=== PATIENT | female | born 1945 | race Caucasian/White ===

== ENCOUNTER → 2016-05-27 | Outpatient (CLI) | payer MEDICARE, OTHER ==
[~2016-05-27] MED LIST: ATRV10T PO; Atorvastatin Calcium PO; BISA5TAB8 PO; CHOL400T29 PO; CITA10TA PO; Citalopram Hydrobromide PO; DCS100C PO; DOCU100T7 PO; FERR-57 PO; FESO8TAB PO; FRS325T PO; HYDR-34 PO; HYDR-3720 PO; HYDR118S10 PO; Ibuprofen PO; MELO-195 PO; MULT-608 PO; Multivitamins/Minerals Therap PO; OMEG-12 PO; OMG1KC PO; ROSU10TA12 PO; TOLTA4 PO; TRAM50TA2 PO; VITA1CAP59 PO; WRF5T PO
--- NOTE | 2016-05-27 13:32 | Diagnostic Imaging Report ---
PROCEDURE: CT head without contrast. TECHNIQUE: Multiple contiguous axial images were obtained through the brain without the use of intravenous contrast. INDICATION: Dementia. FINDINGS: There is no intracranial hemorrhage, edema or mass effect. There is periventricular and deep white matter hypodensities compatible with chronic microvascular ischemic changes. There is no hydrocephalus. No extra-axial fluid collection is seen. The calvarium, the visualized portions of the paranasal sinuses and orbits appear grossly unremarkable. IMPRESSION: 1. No intracranial hemorrhage. 2. White matter findings described are likely secondary to chronic microvascular ischemic changes. Dictated by: Dictated on workstation # [id number]
== END ==
LOC: RAD 12:54
PROVIDERS: ATTEND Family Medicine
DX: F03.90 Unspecified dementia, unspecified severity, without behavioral disturbance, psychotic disturbance, mood disturbance, and anxiety (principal)
CPT/HCPCS: 70450

== ENCOUNTER → 2016-06-25 | Outpatient (CLI) | payer MEDICARE, OTHER ==
[2016-06-25 14:19] LABS: BASOPHILS # (AUTO) 0.1 10^3/uL (0.0-0.1); BASOPHILS % (AUTO) 1 % (0-10); EOSINOPHILS % (AUTO) 0 % (0-10); LYMPHOCYTES # (AUTO) 2.2 X 10^3 (1.0-4.0); LYMPHOCYTES % (AUTO) 19 % (12-44); MEAN CORPUSCULAR HEMOGLOBIN 34 PG (25-34); MEAN CORPUSCULAR HGB CONC 33 G/DL (32-36); MEAN CORPUSCULAR VOLUME 102 FL (80-99); MEAN PLATELET VOLUME 9.7 FL (7.4-10.4); MONOCYTES # (AUTO) 1.3 X 10^3 (0.0-1.0); MONOCYTES % (AUTO) 11 % (0-12); NEUTROPHILS # (AUTO) 8.1 X 10^3 (1.8-7.8); NEUTROPHILS % (AUTO) 69 % (42-75); PLATELET COUNT 220 10^3/uL (130-400); RED BLOOD COUNT 4.06 10^6/uL (4.35-5.85); RED CELL DISTRIBUTION WIDTH 19.2 % (10.0-14.5); WHITE BLOOD COUNT 11.7 10^3/uL (4.3-11.0)
[2016-06-25 14:39] LABS: ALANINE AMINOTRANSFERASE 13 U/L (0-55); ALBUMIN 4.4 G/DL (3.2-4.5); ANION GAP 12 MMOL/L (5-14); ASPARTATE AMINO TRANSFERASE 16 U/L (5-34); BILIRUBIN,TOTAL 0.7 MG/DL (0.1-1.0); BLOOD UREA NITROGEN 13 MG/DL (7-18); BUN/CREATININE RATIO 17; CALCIUM 9.6 MG/DL (8.5-10.1); CARBON DIOXIDE 25 MMOL/L (21-32); CHLORIDE 105 MMOL/L (98-107); CREATININE SERUM 0.75 MG/DL (0.60-1.30); GFR ESTIMATED > 60; GLUCOSE 136 MG/DL (70-105); POTASSIUM 3.9 MMOL/L (3.6-5.0); SODIUM 142 MMOL/L (135-145); TOTAL PROTEIN 6.9 G/DL (6.4-8.2)
== END ==
LOC: LAB 13:59
PROVIDERS: ATTEND Family Medicine
DX: R06.02 Shortness of breath (principal)
CPT/HCPCS: 36415; 80053; 83880; 85025

== ENCOUNTER 2017-02-28 22:51 | Emergency (ER) | payer MEDICARE, OTHER ==
[~2017-02-28] VITALS: Ht 157.5 cm; Wt 79.4 kg
[2017-02-28] MEDS ORDERED: TRAZ-28 (23:05)
[2017-02-28] MEDS ORDERED: OXYB5TAB9 (23:05)
[2017-02-28] MEDS ORDERED: LEVO25TA5 (23:05)
[2017-02-28] MEDS ORDERED: MEMA5TAB16 (23:05)
[2017-02-28] MEDS ORDERED: DONE10TA41 (23:05)
[2017-02-28 23:25] LABS: BASOPHILS # (AUTO) 0.1 10^3/uL (0.0-0.1); BASOPHILS % (AUTO) 1 % (0-10); EOSINOPHILS # (AUTO) 0.2 10^3/uL (0.0-0.3); EOSINOPHILS % (AUTO) 2 % (0-10); LYMPHOCYTES # (AUTO) 3.7 X 10^3 (1.0-4.0); LYMPHOCYTES % (AUTO) 37 % (12-44); MEAN CORPUSCULAR HEMOGLOBIN 35 PG (25-34); MEAN CORPUSCULAR HGB CONC 34 G/DL (32-36); MEAN CORPUSCULAR VOLUME 104 FL (80-99); MEAN PLATELET VOLUME 9.7 FL (7.4-10.4); MONOCYTES # (AUTO) 1.6 X 10^3 (0.0-1.0); MONOCYTES % (AUTO) 17 % (0-12); NEUTROPHILS # (AUTO) 4.3 X 10^3 (1.8-7.8); NEUTROPHILS % (AUTO) 43 % (42-75); PLATELET COUNT 216 10^3/uL (130-400); RED BLOOD COUNT 3.61 10^6/uL (4.35-5.85); WHITE BLOOD COUNT 9.9 10^3/uL (4.3-11.0)
[2017-02-28 23:37] LABS: INR 0.9 (0.8-1.4); PROTHROMBIN TIME PATIENT 12.4 SEC (12.2-14.7)
[2017-02-28] MEDS ORDERED: AMOX-358 PO (23:47)
--- NOTE | 2017-02-28 23:47 | ED EENT ---
History of Present Illness General Chief Complaint: Nasal Problems Stated Complaint: NOSE BLEED Nursing Triage Note: SPONTANEOUS EPITAXIS X 90MIN. Source: patient, family (DAUGHTER, WHO LIVES WITH PT) History of Present Illness Time seen by provider: 23:00 Initial Comments PT ARRIVES VIA POV FROM HOME PT HAS BEEN HAVING NOSEBLEEDS FROM LEFT NARE OFF AND ON FOR SEVERAL MONTHS THIS NOSEBLEED BEGAN 1 1/2 HOURS AGO WHILE SITTING ON COUCH AND CONTINUES, AND HAS HAD SOME CLOTS WHEN SHE BLOWS HAS NOT HAD A NOSEBLEED LAST THIS LONG NO PAIN TO NOSE NO RECENT ALLERGIES/SINUS/URI SYMPTOMS NO FEVER PT IS NOT ON BLOOD THINNERS OR ASPIRIN--DOES TAKE MOBIC PCP: DR. RAMIREZ Allergies and Home Medications Allergies Coded Allergies: No Known Drug Allergies (Unverified , 06/24/11) Home Medications Amoxicillin/Potassium Clav 1 Each Tablet, 1 EACH PO BID, #20 Prescribed by: ONEYDA CHRISTIANSON on 02/28/17 7577 Citalopram Hydrobromide 10 Mg Tablet, 10 MG PO DAILY, (Reported) Docusate Sodium 100 Mg Capsule, 1 CAP PO DAILY PRN for CONSTIPATION, #60 Prescribed by: DEEDEE BLACK on 12/21/13 0728 Donepezil HCl 10 Mg Tablet, (Reported) Ferrous Sulfate 325 Mg Tablet, 325 MG PO DAILY, (Reported) Levothyroxine Sodium 25 Mcg Tablet, (Reported) Meloxicam 15 Mg Tablet, 15 MG PO DAILY, (Reported) Memantine HCl 5 Mg Tablet, (Reported) Multivitamins 1 Tab Tablet, 1 TAB PO DAILY, (Reported) Oxybutynin Chloride 5 Mg Tablet, (Reported) Trazodone HCl 50 Mg Tablet, (Reported) [Ibuprofen] 800 MG TAB, 400 MG PO Q6HR, #60 Prescribed by: DEEDEE BLACK on 12/21/13 0728 Review of Systems Constitutional: no symptoms reported, No dizziness Nose: see HPI, epistaxis Mouth: no symptoms reported Throat: no symptoms reported Respiratory: no symptoms reported Cardiovascular: no symptoms reported Gastrointestinal: no symptoms reported Musculoskeletal: no symptoms reported Skin: no symptoms reported Neurological: No Symptoms Reported (PT WITH DEMENTIA, HAS BEEN STARTED ON NAMENDA IN THE LAST COUPLE OF MONTHS) Hematologic/Lymphatic: See HPI, Denies Easy Bruising Immunological/Allergic: no symptoms reported Past Zxqcnvr-Bvldzs-Zeefwu Hx Patient Social History Alcohol Use: Denies Use Recreational Drug Use: No Smoking Status: Never a Smoker 2nd Hand Smoke Exposure: No Recent Foreign Travel: No Contact w/Someone Who Travel: No Recent Infectious Disease Expo: No Recent Hopitalizations: No Immunizations Up To Date Tetanus Booster (TDap): More than 5yrs Date of Pneumonia Vaccine: Feb 16, 2012 Date of Influenza Vaccine: Jan 26, 2013 Seasonal Allergies Seasonal Allergies: No Surgeries History of Surgeries: Yes (RIGHT KNEE REPLACEMENT X 2 ( REVISION DUE TO INFECTION); LEFT CARPAL TUNNEL; RIGHT SHOULDER/ROTATOR CUFF REPAIR; HYST/BSO WITH ANTERIOR/POSTERIOR/ENTEROCOELE REPAIR AND SACRAL SPINOUS SUSPENSION AND PUBOVAGINAL SLING AND CYSTOSCOPY IN 2013) Surgeries: Bladder Surgery, Hysterectomy, Joint Replacement, Oophorectomy, Orthopedic Respiratory History of Respiratory Disorde: No Cardiovascular History of Cardiac Disorders: Yes Cardiac Disorders: High Cholesterol Neurological History of Neurological Disord: Yes Neurological Disorders: Dementia Reproductive System Hx Reproductive Disorders: No Sexually Transmitted Disease: No HIV/AIDS: No Female Reproductive Disorders: Denies Genitourinary History of Genitourinary Disor: Yes (INCONTINENCE--S/P SURGERY) Genitourinary Disorders: Kidney Stones Gastrointestinal History of Gastrointestinal Di: Yes Gastrointestinal Disorders: Chronic Constipation Musculoskeletal History of Musculoskeletal Dis: Yes Musculoskeletal Disorders: Arthritis Endocrine History of Endocrine Disorders: Yes Endocrine Disorders: Hypothyroidsim HEENT History of HEENT Disorders: Yes HEENT Disorders: Cataract Hearing Impairment: Hard of Hearing Cancer History of Cancer: No Psychosocial History of Psychiatric Problem: Yes Behavioral Health Disorders: Sleep Difficulties, Depression Integumentary History of Skin or Integumenta: No Blood Transfusions History of Blood Disorders: No Adverse Reaction to a Blood Tr: No Family Medical History Family Medial History: Cancer 03 MOTHER Family history: Alzheimer's disease 03 FATHER Family history: Arthritis 03 MOTHER (MOM HAD HUMP ON BACK) No Family History of: Congestive heart failure Family history: Cardiovascular disease Family history: Diabetes mellitus Family history: Gastrointestinal disease Family history: Glaucoma Family history: Thyroid disorder Physical Exam Vital Signs Vital Sign - Last 12Hours 02/28/17 23:06 Temp 98.0 Pulse 96 Resp 18 B/P (MAP) 121/58 Pulse Ox 95 O2 Delivery Room Air General Appearance: WD/WN, no apparent distress Eyes: bilateral eye normal inspection Nose: No active bleeding, No discharge, dried blood (IN LEFT NARE. 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 NO FURTHER BLEEDING Progress/Results/Core Measures Results/Orders Lab Results Laboratory Tests Test 02/28/17 23:17 Range/Units White Blood Count 9.9 4.3-11.0 10^3/uL Red Blood Count 3.61 L 4.35-5.85 10^6/uL Hemoglobin 12.7 11.5-16.0 G/DL Hematocrit 38 35-52 % Mean Corpuscular Volume 104 H 80-99 FL Mean Corpuscular Hemoglobin 35 H 25-34 PG Mean Corpuscular Hemoglobin Concent 34 32-36 G/DL Red Cell Distribution Width 19.0 H 10.0-14.5 % Platelet Count 216 130-400 10^3/uL Mean Platelet Volume 9.7 7.4-10.4 FL Neutrophils (%) (Auto) 43 42-75 % Lymphocytes (%) (Auto) 37 12-44 % Monocytes (%) (Auto) 17 H 0-12 % Eosinophils (%) (Auto) 2 0-10 % Basophils (%) (Auto) 1 0-10 % Neutrophils # (Auto) 4.3 1.8-7.8 X 10^3 Lymphocytes # (Auto) 3.7 1.0-4.0 X 10^3 Monocytes # (Auto) 1.6 H 0.0-1.0 X 10^3 Eosinophils # (Auto) 0.2 0.0-0.3 10^3/uL Basophils # (Auto) 0.1 0.0-0.1 10^3/uL Prothrombin Time 12.4 12.2-14.7 SEC INR Comment 0.9 0.8-1.4 Activated Partial Thromboplast Time 25 24-35 SEC My Orders Orders - ONEYDA CHRISTIANSON DO Cbc With Automated Diff (02/28/17 23:03) Protime With Inr (02/28/17 23:03) Partial Thromboplastin Time (02/28/17 23:03) Rx-Amoxicillin/Clav Tab (Rx-Augmentin Ta (02/28/17 23:45) Vital Signs/I&O Vital Sign - Last 12Hours 02/28/17 02/28/17 23:06 23:58 Temp 98.0 98.0 Pulse 96 96 Resp 18 18 B/P (MAP) 121/58 Pulse Ox 95 95 O2 Delivery Room Air Blood Pressure Mean: 79 Departure Impression Impression: Primary Impression: Epistaxis Disposition: HOME, SELF-CARE Condition: Stable Departure-Patient Inst. Referrals: CAMILLE RAMIREZ DO (PCP/Family) Primary Care Physician Patient Instructions: Nosebleeds (DC) Add. Discharge Instructions: LEAVE NASAL PACKING IN PLACE DO NOT RUB OR PICK AT OR BLOW YOUR NOSE FOLLOW UP WITH DR. DAWN'S OFFICE ON FRIDAY FOR FURTHER CARE All discharge instructions reviewed with patient and/or family. Voiced understanding. Scripts Amoxicillin/Potassium Clav (Augmentin 875-125 Tablet) 1 Each Tablet 1 EACH PO BID for INFECTION, #20 TAB Prov: ONEYDA CHRISTIANSON DO 02/28/17 ONEYDA CHRISTIANSON DO Feb 28, 2017 23:47
[2017-02-28] MEDS: RX-AMOX/CLAV. (AUGMENTIN) 500MG TAB PPK#2 PO STA (23:54)
[2017-02-28 23:58] VITALS: BP 121/58
== END 2017-02-28 23:56 | disposition home or self-care (01) ==
LOC: EDUNIT# 22:51 → ER 22:52
DX: R04.0 Epistaxis (principal); E78.00 Pure hypercholesterolemia, unspecified; F03.90 Unspecified dementia, unspecified severity, without behavioral disturbance, psychotic disturbance, mood disturbance, and anxiety; F32.9 Major depressive disorder, single episode, unspecified; E03.9 Hypothyroidism, unspecified; M19.90 Unspecified osteoarthritis, unspecified site; Z87.19 Personal history of other diseases of the digestive system; Z87.442 Personal history of urinary calculi; Z96.651 Presence of right artificial knee joint; Z90.710 Acquired absence of both cervix and uterus
CPT/HCPCS: 36415; 85025; 85610; 85730; 99283

== ENCOUNTER 2017-04-13 17:29 | Emergency (ER) | payer MEDICARE, OTHER ==
[~2017-04-13] VITALS: Ht 157.5 cm; Wt 83.9 kg
[~2017-04-13 17:29] MED LIST changes: +AMOX-358 PO; +DONE10TA41; +LEVO25TA5; +MEMA5TAB16; +OXYB5TAB9; +TRAZ-28
[2017-04-13] MEDS ORDERED: TRAM50TA2 PO (18:02)
[2017-04-13] MEDS ORDERED: NAPR-1070 PO (18:02)
--- NOTE | 2017-04-13 18:33 | ED EENT ---
History of Present Illness General Chief Complaint: Nasal Problems Stated Complaint: NOSE BLEED Nursing Triage Note: PT PRESENTS TO ER WITH COMPLAINT OF NOSE BLEED. PT STATES IT STARTED BEFORE 1700. Source: patient, family (DAUGHTER) History of Present Illness Time seen by provider: 18:10 Initial Comments C/O NOSEBLEED FROM LEFT NARE --BEGAN APPROXIMATELY 1 HOUR 15 MINUTES AGO STATES SHE WAS SITTING AT THE TIME, STATES HER NOSE WAS ITCHING AND SHE STARTED "RUBBING" IT AND THEN IT STARTED BLEEDING PT HAD THE SAME THING APPROXIMATELY A MONTH AGO, ON SAME SIDE, AND WAS SEEN IN ER AND NOSE WAS PACKED WITH RAPID RHINO AND BLEEDING STOPPED--PT PULLED THE RAPID RHINO OUT HERSELF, APPARENTLY DURING THE NIGHT--PT HAS DEMENTIA AND WAS CONFUSED AND DID NOT KNOW WHAT IT WAS, ACCORDING TO DAUGHTER (WITHOUT DEFLATING BULB) WAS SUPPOSED TO FOLLOW UP WITH DR. DAWN, BUT NEVER DID PT WAS TAKING MOBIC AND IT WAS DC'D AFTER THAT VISIT, BUT SAW DR. RAMIREZ AND WAS STARTED ON NAPROXEN THIS WEEK. PT DOES NOT TAKE ASPIRIN OR ANY OTHER BLOOD THINNERS. NO PAIN TO NOSE OR RECENT URI/SINUS SYMPTOMS HAS BEEN HAVING NOSEBLEEDS FROM LEFT NARE OFF AND ON FOR SEVERAL MONTHS, HAS NOT SEEN ENT AT ANY TIME PCP: DR. RAMIREZ Allergies and Home Medications Allergies Coded Allergies: No Known Drug Allergies (Unverified , 06/24/11) Home Medications Amoxicillin/Potassium Clav 1 Each Tablet, 1 EACH PO BID, #20 Prescribed by: NOEYDA CHRISTIANSON on 04/13/17 1856 Docusate Sodium 100 Mg Capsule, 1 CAP PO DAILY PRN for CONSTIPATION, #60 Prescribed by: DEEDEE BLACK on 12/21/13 0728 Donepezil HCl 10 Mg Tablet, (Reported) Ferrous Sulfate 325 Mg Tablet, 325 MG PO DAILY, (Reported) Levothyroxine Sodium 25 Mcg Tablet, (Reported) Memantine HCl 5 Mg Tablet, (Reported) Multivitamins 1 Tab Tablet, 1 TAB PO DAILY, (Reported) Naproxen Sodium 550 Mg Tablet, Unknown Dose PO BID, (Reported) Oxybutynin Chloride 5 Mg Tablet, (Reported) Tramadol HCl 50 Mg Tablet, Unknown Dose PO, (Reported) Trazodone HCl 50 Mg Tablet, (Reported) [Ibuprofen] 800 MG TAB, 400 MG PO Q6HR, #60 Prescribed by: DEEDEE BLACK on 12/21/13 0728 Review of Systems Constitutional: no symptoms reported Nose: see HPI, epistaxis Throat: other (BLOOD DRAINING DOWN BACK OF THROAT) Respiratory: no symptoms reported Neurological: No Symptoms Reported (PT WITH DEMENTIA) Hematologic/Lymphatic: See HPI, Denies Blood Clots, Denies Easy Bruising Past Qlydyrh-Awxrte-Xudyez Hx Patient Social History Alcohol Use: Denies Use Recreational Drug Use: No Smoking Status: Never a Smoker 2nd Hand Smoke Exposure: No Recent Foreign Travel: No Contact w/Someone Who Travel: No Recent Infectious Disease Expo: No Recent Hopitalizations: No Physical Abuse: No Sexual Abuse: No Immunizations Up To Date Tetanus Booster (TDap): More than 5yrs Date of Pneumonia Vaccine: Feb 16, 2012 Date of Influenza Vaccine: Jan 26, 2017 Seasonal Allergies Seasonal Allergies: No Surgeries History of Surgeries: Yes (RIGHT KNEE REPLACEMENT X 2 ( REVISION DUE TO INFECTION) LEFT CARPAL TUNNEL; RIGHT SHOULDER/ROTATOR CUFF REPAIR; HYST/BSO WITH ANTERIOR/POSTERIOR ENTEROCOELE REPAIR AND SACRAL SPINOUS SUSPENSION AND PUBO-VAGINAL SLING WITH CYSTOSCOPY IN 2013) Surgeries: Bladder Surgery, Hysterectomy, Joint Replacement, Oophorectomy, Orthopedic Respiratory History of Respiratory Disorde: No Cardiovascular History of Cardiac Disorders: Yes Cardiac Disorders: High Cholesterol Neurological History of Neurological Disord: Yes Neurological Disorders: Dementia Reproductive System Hx Reproductive Disorders: No Sexually Transmitted Disease: No HIV/AIDS: No Female Reproductive Disorders: Denies Genitourinary History of Genitourinary Disor: Yes (INCONTINENCE--S/P SURGERY) Genitourinary Disorders: Kidney Stones Gastrointestinal History of Gastrointestinal Di: Yes Gastrointestinal Disorders: Chronic Constipation Musculoskeletal History of Musculoskeletal Dis: Yes Musculoskeletal Disorders: Arthritis Endocrine History of Endocrine Disorders: Yes Endocrine Disorders: Hypothyroidsim HEENT History of HEENT Disorders: Yes (NOSEBLEEDS) HEENT Disorders: Cataract Hearing Impairment: Hard of Hearing Cancer History of Cancer: No Psychosocial History of Psychiatric Problem: Yes Behavioral Health Disorders: Sleep Difficulties, Depression Suicide Risk Score: 0 Integumentary History of Skin or Integumenta: No Blood Transfusions History of Blood Disorders: No Adverse Reaction to a Blood Tr: No Family Medical History Family Medial History: Cancer 03 MOTHER Family history: Alzheimer's disease 03 FATHER Family history: Arthritis 03 MOTHER (MOM HAD HUMP ON BACK) No Family History of: Congestive heart failure Family history: Cardiovascular disease Family history: Diabetes mellitus Family history: Gastrointestinal disease Family history: Glaucoma Family history: Thyroid disorder Physical Exam Vital Signs Vital Sign - Last 12Hours 04/13/17 17:57 Temp 98.0 Pulse 100 Resp 20 B/P (MAP) 129/86 (100) Pulse Ox 94 O2 Delivery Room Air General Appearance: WD/WN, no apparent distress, other (ANXIOUS) Nose: other (FRESH CLOTS IN LEFT NARE AND IN POSTERIOR PHARYNX. NO ACTIVE BLEEDING. 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 NO FURTHER BLEEDING. Progress/Results/Core Measures Results/Orders My Orders Orders - ONEYDA CHRISTIANSON DO Amoxicillin/Clavulanate Tablet (Augmenti (04/13/17 19:00) Vital Signs/I&O Vital Sign - Last 12Hours 04/13/17 17:57 Temp 98.0 Pulse 100 Resp 20 B/P (MAP) 129/86 (100) Pulse Ox 94 O2 Delivery Room Air Blood Pressure Mean: 100 Progress Note : Progress Note ADVISED OF IMPORTANCE OF FOLLOW UP WITH DR. DAWN FOR FURTHER CARE, THIS IS A RECURRING PROBLEM Departure Impression Impression: Primary Impression: Left-sided epistaxis Disposition: 01 HOME, SELF-CARE Condition: Improved Departure-Patient Inst. Referrals: MARGE DAWN MD, RICHARD A DO (PCP/Family) Primary Care Physician Patient Instructions: Nosebleeds (DC) Add. Discharge Instructions: LEAVE PACKING IN PLACE AT ALL TIMES HUMIDIFY THE AIR IN YOUR HOME DO NOT RUB NOSE FOLLOW UP WITH DR. DAWN IN 2-3 DAYS--CALL IN AM FOR APPOINTMENT All discharge instructions reviewed with patient and/or family. Voiced understanding. Scripts Amoxicillin/Potassium Clav (Augmentin 875-125 Tablet) 1 Each Tablet 1 EACH PO BID for INFECTION, #20 TAB Prov: ONEYDA CHRISTIANSON DO 04/13/17 ONEYDA CHRISTIANSON DO Apr 13, 2017 18:33
[2017-04-13] MEDS ORDERED: AMOX-358 PO (18:56)
[2017-04-13] MEDS ORDERED: AUGMENTIN 875 MG TAB (AMOXICILLIN/CLAVULANATE) PO SCH (19:00)
[2017-04-13 19:26] VITALS: BP 113/80
== END 2017-04-13 19:24 | disposition home or self-care (01) ==
LOC: EDUNIT# 17:29 → ER 17:30
DX: R04.0 Epistaxis (principal); E78.00 Pure hypercholesterolemia, unspecified; E03.9 Hypothyroidism, unspecified; M19.90 Unspecified osteoarthritis, unspecified site; F32.9 Major depressive disorder, single episode, unspecified; F03.90 Unspecified dementia, unspecified severity, without behavioral disturbance, psychotic disturbance, mood disturbance, and anxiety; Z87.442 Personal history of urinary calculi; Z87.19 Personal history of other diseases of the digestive system; Z96.651 Presence of right artificial knee joint; Z90.710 Acquired absence of both cervix and uterus
CPT/HCPCS: 99283

== ENCOUNTER 2017-05-07 14:16 | Emergency (ER) | payer MEDICARE, OTHER ==
[~2017-05-07] VITALS: Ht 157.5 cm; Wt 93.0 kg
[~2017-05-07 14:16] MED LIST changes: +NAPR-1070 PO
[2017-05-07] MEDS ORDERED: CEFP500T4 PO (14:58)
--- NOTE | 2017-05-07 14:58 | ED EENT ---
History of Present Illness General Chief Complaint: Nasal Problems Stated Complaint: NOSE BLEED Source: patient History of Present Illness Time seen by provider: 14:34 Initial Comments C/O LEFT SIDED NOSEBLEED SINCE SOME TIME MID MORNING NO KNOWN INJURY NO FEVER OR URI SYMPTOMS PRIOR TO ONSET NO PAIN TO NOSE THIS IS 3RD VISIT SINCE FEBRUARY FOR LEFT SIDED NOSEBLEED--SEEN HERE 02/28, AND 04/11 NOSE WAS PACKED WITH RAPID RHINO ON PREVIOUS VISITS, AND PT HAD PULLED OUT PACKING AFTER SHE GOT HOME--PT HAS DEMENTIA AND IS VERY CONFUSED PT STATES SHE DID FOLLOW UP WITH DR. DAWN AFTER THE LAST VISIT AND WAS GIVEN MUPIROCIN TO USE DAILY PT HAS BEEN HAVING NOSEBLEEDS FROM LEFT NARE OFF AND ON FOR SEVERAL MONTHS, BUT HAS BEEN GETTING WORSE SINCE FEBRUARY--LASTING LONGER PT IS NOT TAKING ASPIRIN OR BLOOD THINNERS PCP: DR. RAMIREZ Allergies and Home Medications Allergies Coded Allergies: No Known Drug Allergies (Unverified , 06/24/11) Home Medications Amoxicillin/Potassium Clav 1 Each Tablet, 1 EACH PO BID, #20 Prescribed by: ONEYDA CHRISTIANSON on 04/13/17 1856 Amoxicillin/Potassium Clav 1 Each Tablet, 1 EACH PO BID, #20 Prescribed by: ONEYDA CHRISTIANSON on 05/07/17 1513 Docusate Sodium 100 Mg Capsule, 1 CAP PO DAILY PRN for CONSTIPATION, #60 Prescribed by: DEEDEE BLACK on 12/21/13 0728 Donepezil HCl 10 Mg Tablet, (Reported) Ferrous Sulfate 325 Mg Tablet, 325 MG PO DAILY, (Reported) Levothyroxine Sodium 25 Mcg Tablet, (Reported) Memantine HCl 5 Mg Tablet, (Reported) Multivitamins 1 Tab Tablet, 1 TAB PO DAILY, (Reported) Naproxen Sodium 550 Mg Tablet, Unknown Dose PO BID, (Reported) Oxybutynin Chloride 5 Mg Tablet, (Reported) Tramadol HCl 50 Mg Tablet, Unknown Dose PO, (Reported) Trazodone HCl 50 Mg Tablet, (Reported) [Ibuprofen] 800 MG TAB, 400 MG PO Q6HR, #60 Prescribed by: DEEDEE BLACK on 12/21/13 0728 Review of Systems Constitutional: no symptoms reported Nose: see HPI Mouth: other (BLOOD IN THROAT) Neurological: See HPI (DEMENTIA), Anxiety Hematologic/Lymphatic: No Symptoms Reported, Denies Anemia Past Vqngzfw-Oqhkfl-Ernjzo Hx Patient Social History Alcohol Use: Denies Use Recreational Drug Use: No Smoking Status: Never a Smoker 2nd Hand Smoke Exposure: No Recent Foreign Travel: No Contact w/Someone Who Travel: No Recent Hopitalizations: No Physical Abuse: No Sexual Abuse: No Immunizations Up To Date Tetanus Booster (TDap): More than 5yrs Date of Pneumonia Vaccine: Feb 16, 2012 Date of Influenza Vaccine: Jan 26, 2017 Seasonal Allergies Seasonal Allergies: No Surgeries History of Surgeries: Yes (RIGHT KNEE REPLACEMENT X 2--REVISION DUE TO INFECTION; LEFT CARPAL TUNNEL; RIGHT SHOULDER ROTATOR CUFF REPAIR; HYST/BSO WITH ANTERIOR/POSTERIOR ENTEROCOELE REPAIR AND SACRAL SPINOUS SUSPENSION AND PUBO-VAGINAL SLIHG WITH CYSTOSCOPY IN 2013) Surgeries: Bladder Surgery, Hysterectomy, Joint Replacement, Oophorectomy, Orthopedic Respiratory History of Respiratory Disorde: No Cardiovascular History of Cardiac Disorders: Yes Cardiac Disorders: High Cholesterol Neurological History of Neurological Disord: Yes Neurological Disorders: Dementia Reproductive System Hx Reproductive Disorders: No Sexually Transmitted Disease: No HIV/AIDS: No Female Reproductive Disorders: Denies Genitourinary History of Genitourinary Disor: Yes (INCONTINENCE--S/P SURGERY) Genitourinary Disorders: Kidney Stones Gastrointestinal History of Gastrointestinal Di: Yes Gastrointestinal Disorders: Chronic Constipation Musculoskeletal History of Musculoskeletal Dis: Yes Musculoskeletal Disorders: Arthritis Endocrine History of Endocrine Disorders: Yes Endocrine Disorders: Hypothyroidsim HEENT History of HEENT Disorders: Yes (NOSEBLEEDS) HEENT Disorders: Cataract Hearing Impairment: Hard of Hearing Cancer History of Cancer: No Psychosocial History of Psychiatric Problem: Yes Behavioral Health Disorders: Sleep Difficulties, Depression Suicide Risk Score: 0 Integumentary History of Skin or Integumenta: No Blood Transfusions History of Blood Disorders: No Adverse Reaction to a Blood Tr: No Family Medical History Family Medial History: Cancer 03 MOTHER Family history: Alzheimer's disease 03 FATHER Family history: Arthritis 03 MOTHER (MOM HAD HUMP ON BACK) No Family History of: Congestive heart failure Family history: Cardiovascular disease Family history: Diabetes mellitus Family history: Gastrointestinal disease Family history: Glaucoma Family history: Thyroid disorder Physical Exam Vital Signs Vital Sign - Last 12Hours 05/07/17 14:20 Temp 97.9 Pulse 90 Resp 18 B/P (MAP) 145/102 (116) Pulse Ox 95 General Appearance: WD/WN, no apparent distress Nose: other (CONSTANT SLOW OOZING OF BLOOD FROM LEFT NARE, WITH CLOTS. NO SINUS TENDERNESS. 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, no motor/sensory deficits, alert, normal mood/affect, other (POOR MEMORY--ORIENTED TO PERSON, PLACE AND SITUATION) Skin: normal color, warm/dry Nasal : Nasal Location: Left Clots Cleared from Nasal: Patient Blowing Inspection with: Otoscope Nasal Procedures: Rapid Rhino (5.5 CM) Progress NO FURTHER BLEEDING AFTER PACKING AND NO BLOOD IN POSTERIOR PHARYNX AT DISMISSAL Progress/Results/Core Measures Results/Orders Vital Signs/I&O Vital Sign - Last 12Hours 05/07/17 14:20 Temp 97.9 Pulse 90 Resp 18 B/P (MAP) 145/102 (116) Pulse Ox 95 Departure Impression Impression: Primary Impression: Left-sided epistaxis Disposition: 01 HOME, SELF-CARE Condition: Improved Departure-Patient Inst. Referrals: MARGE DAWN MD, RICHARD A DO (PCP/Family) Primary Care Physician Patient Instructions: Nosebleeds (DC) Add. Discharge Instructions: LEAVE PACKING IN PLACE AT ALL TIMES DO NOT RUB, PICK AT, OR BLOW NOSE HUMIDIFY AIR IN YOUR HOME FOLLOW UP WITH DR. DAWN IN 2-3 DAYS FOR FURTHER CARE All discharge instructions reviewed with patient and/or family. Voiced understanding. Scripts Amoxicillin/Potassium Clav (Augmentin 875-125 Tablet) 1 Each Tablet 1 EACH PO BID for INFECTION, #20 TAB Prov: ONEYDA CHRISTIANSON DO 05/07/17 ONEYDA CHRISTIANSON DO May 07, 2017 14:58
[2017-05-07] MEDS ORDERED: AMOX-358 PO (15:13)
[2017-05-07 15:45] VITALS: BP 145/102
== END 2017-05-07 15:45 | disposition home or self-care (01) ==
LOC: EDUNIT# 14:16 → ER 14:18
DX: R04.0 Epistaxis (principal); E78.00 Pure hypercholesterolemia, unspecified; F03.90 Unspecified dementia, unspecified severity, without behavioral disturbance, psychotic disturbance, mood disturbance, and anxiety; E03.9 Hypothyroidism, unspecified; F32.9 Major depressive disorder, single episode, unspecified; Z87.442 Personal history of urinary calculi; Z87.19 Personal history of other diseases of the digestive system; Z90.710 Acquired absence of both cervix and uterus; Z96.651 Presence of right artificial knee joint
CPT/HCPCS: 99283

== ENCOUNTER → 2017-07-17 | Outpatient (CLI) | payer MEDICARE, MEDICAID ==
[~2017-07-17] MED LIST changes: +CEFP500T4 PO
--- NOTE | 2017-07-17 15:45 | Diagnostic Imaging Report ---
INDICATION: Low back pain and pelvic pain. TIME OF EXAM: 02:52 p.m. FINDINGS: Three views of the lumbar spine were obtained. Lordotic curvature is normal. There appears to be mild anterolisthesis of L4 on L5 as well as L5 on S1. Significant degenerative disc disease at the L2-L3 through L5-S1 levels is noted with variable disc space narrowing and marginal osteophyte formation. There is significant multilevel facet arthropathy. The vertebral body heights are maintained, without evidence of an acute compression fracture. The abdominal aorta is calcified. IMPRESSION: Significant lumbar spondylosis and facet arthropathy. No acute compression fracture is identified. Dictated by: Dictated on workstation # [id number]
== END ==
LOC: RAD 14:10
PROVIDERS: ATTEND Family Medicine
DX: M47.816 Spondylosis without myelopathy or radiculopathy, lumbar region (principal); M46.86 Other specified inflammatory spondylopathies, lumbar region
CPT/HCPCS: 72100

== ENCOUNTER → 2017-09-20 | Outpatient (CLI) | payer MEDICARE, MEDICAID ==
[2017-09-20 15:08] LABS: BASOPHILS # (AUTO) 0.1 10^3/uL (0.0-0.1); BASOPHILS % (AUTO) 1 % (0-10); EOSINOPHILS % (AUTO) 0 % (0-10); HEMATOCRIT 39 % (35-52); HEMOGLOBIN 13.3 G/DL (11.5-16.0); LYMPHOCYTES # (AUTO) 2.2 X 10^3 (1.0-4.0); LYMPHOCYTES % (AUTO) 19 % (12-44); MEAN CORPUSCULAR HEMOGLOBIN 35 PG (25-34); MEAN CORPUSCULAR HGB CONC 34 G/DL (32-36); MEAN CORPUSCULAR VOLUME 103 FL (80-99); MEAN PLATELET VOLUME 9.6 FL (7.4-10.4); MONOCYTES # (AUTO) 1.5 X 10^3 (0.0-1.0); MONOCYTES % (AUTO) 13 % (0-12); NEUTROPHILS # (AUTO) 7.8 X 10^3 (1.8-7.8); NEUTROPHILS % (AUTO) 67 % (42-75); PLATELET COUNT 263 10^3/uL (130-400); RED BLOOD COUNT 3.75 10^6/uL (4.35-5.85); RED CELL DISTRIBUTION WIDTH 19.8 % (10.0-14.5); WHITE BLOOD COUNT 11.6 10^3/uL (4.3-11.0)
[2017-09-20 15:32] LABS: ALANINE AMINOTRANSFERASE 27 U/L (0-55); ALBUMIN 4.3 GM/DL (3.2-4.5); ALKALINE PHOSPHATASE 78 U/L (40-136); BILIRUBIN,TOTAL 0.5 MG/DL (0.1-1.0); BUN/CREATININE RATIO 22; CALCIUM 9.5 MG/DL (8.5-10.1); CARBON DIOXIDE 23 MMOL/L (21-32); CHLORIDE 106 MMOL/L (98-107); CREATININE SERUM 0.69 MG/DL (0.60-1.30); GFR ESTIMATED > 60; GLUCOSE 131 MG/DL (70-105); POTASSIUM 3.5 MMOL/L (3.6-5.0); SODIUM 140 MMOL/L (135-145); TOTAL PROTEIN 6.6 GM/DL (6.4-8.2)
== END ==
LOC: LAB 14:50
PROVIDERS: ATTEND Nurse Practitioner Family
DX: R68.83 Chills (without fever) (principal); R35.0 Frequency of micturition; R82.99 Other abnormal findings in urine
CPT/HCPCS: 36415; 80053; 85025; 87088

== ENCOUNTER 2018-06-24 12:08 | Outpatient (CLI) | payer MEDICARE ==
[~2018-06-24] VITALS: Ht 157.5 cm; Wt 72.2 kg
[~2018-06-24 12:08] MED LIST changes: +TRAZ-189; -TRAZ-28
[2018-06-24] MEDS ORDERED: NS IV 1000 ML 1,000 ML ONE (12:29)
[2018-06-24 12:34] VITALS: BP 117/91
[2018-06-24] MEDS ORDERED: NS IV 1000 ML 1,000 ML IV ONE (12:45)
[2018-06-24 12:55] LABS: HEMOGLOBIN 12.7 G/DL (11.5-16.0); MEAN PLATELET VOLUME 9.9 FL (7.4-10.4); RED CELL DISTRIBUTION WIDTH 20.9 % (10.0-14.5); WHITE BLOOD COUNT 7.6 10^3/uL (4.3-11.0)
[2018-06-24 13:13] LABS: ALANINE AMINOTRANSFERASE 41 U/L (0-55); ALBUMIN 4.2 GM/DL (3.2-4.5); ALKALINE PHOSPHATASE 75 U/L (40-136); BILIRUBIN,TOTAL 0.5 MG/DL (0.1-1.0); BUN/CREATININE RATIO 24; CALCIUM 9.6 MG/DL (8.5-10.1); CARBON DIOXIDE 22 MMOL/L (21-32); CHLORIDE 104 MMOL/L (98-107); GFR ESTIMATED > 60; GLUCOSE 111 MG/DL (70-105); POTASSIUM 3.5 MMOL/L (3.6-5.0); SODIUM 139 MMOL/L (135-145); TOTAL PROTEIN 6.8 GM/DL (6.4-8.2)
[2018-06-24 14:05] LABS: BILIRUBIN,URINE NEGATIVE (NEGATIVE); CLARITY,URINE CLEAR; COLOR,URINE YELLOW; GLUCOSE, URINE (UA) NEGATIVE (NEGATIVE); KETONES,URINE 3+ (NEGATIVE); LEUKOCYTE ESTERASE ,URINE 1+ (NEGATIVE); NITRITE,URINE NEGATIVE (NEGATIVE); PH,URINE 7 (5-9); PROTEIN,URINE NEGATIVE (NEGATIVE); UROBILINOGEN,URINE NORMAL (NORMAL)
[2018-06-24 14:13] LABS: BACTERIA,URINE MODERATE /HPF
[2018-06-24 14:14] LABS: AMORPHOUS SEDIMENT,UR RARE AMOR PHOSPHATE /LPF
== END 2018-06-24 13:50 | disposition home or self-care (01) ==
LOC: SDC 12:08
PROVIDERS: ATTEND Nurse Practitioner Family
DX: E86.0 Dehydration (principal); R53.1 Weakness; R53.81 Other malaise
CPT/HCPCS: 36415; 80053; 81000; 85027

== ENCOUNTER 2018-07-17 19:17 | Emergency (ER) | payer MEDICARE ==
[~2018-07-17] VITALS: Ht 157.5 cm; Wt 68.9 kg
[2018-07-17 20:40] VITALS: BP 118/87
--- NOTE | 2018-07-17 20:45 | NUR ---
REPORT GIVEN TO LAW SANCHEZ FROM MARTY MELCHOR REGARDING PT TRANSFER. ER-ER TRANSFER.
--- NOTE | 2018-07-19 06:10 | ED EENT ---
History of Present Illness General Chief Complaint: Nasal Problems Stated Complaint: NOSE BLEED Nursing Triage Note: PT TO ROOM #5 VIA PESONAL W/C. A&OX3. DAUGHTER @ SIDE REPORTS INTERMITTENT LT NARE NOSE BLEED SINCE 07/15/18. DAUGHTER REPORTS ON 07/16/18 PT WAS SEEN @ PCP WHERE SILVER NITRATE WAS ADM TO LT NARE. DAUGHTER REPORTS PT WAS SEEN @ [facility], WHERE SILVER NITRATE WAS ADM WITH NO DECREASE IN BLOOD FLOW. UPON ARRIVAL PACKING TO LT NARE NOTED. BLEEDING CONTROLLED. Source: family (DAUGHTER GIVES ALL INFORMATION) Exam Limitations: other (PT WITH DEMENTIA) History of Present Illness Date Seen by Provider: Jul 17, 2018 Time Seen by Provider: 20:02 Initial Comments PT ARRIVES VIA POV FROM HOME C/O NOSEBLEED FROM LEFT NARE SINCE 07/15/18--HAS HISTORY OF FREQUENT NOSEBLEEDS , BUT NO SIGNIFICANT BLEEDS SINCE APR [address] MOELLER YESTERDAY AND NOSE CAUTERIZED WITH SILVER NITRATE. BLEEDING STOPPED AT THAT TIME BLEEDING RETURNED TODAY AROUND 1600 AND WAS "GUSHING" --DAUGHTER STATES IT HAS NEVER BLED THAT MUCH BEFORE. WENT TO [facility] THIS EVENING AND THEY CAUTERIZED THE NOSE 3 DIFFERENT TIMES WITH SILVER NITRATE, WITHOUT IMPROVEMENT. THEY SENT PT HERE--NO CALL FROM THEM WITH REPORT. DAUGHTER HAS PLACED TAMPONS IN LEFT NARE--DAUGHTER STATES THAT PT HAS COMPLETELY SATURATED 4 TAMPONS BETWEEN 1600 -1700 AND SATURATED A 5TH ONE ON THE WAY HERE, AND DAUGHTER HAS PUT ANOTHER ONE IN AFTER BEING PLACED IN ROOM. NO INJURY, DENIES SNEEZING / COUGHING ETC. OR PICKING OR RUBBING NOSE PRIOR TO ONSET OF NOSEBLEED PT HAS NOT TAKEN ASPIRIN X 1 WEEK, AND NO MOBIC SINCE FRIDAY. DOES NOT TAKE ANY OTHER ANTICOAGULANTS Allergies and Home Medications Allergies Coded Allergies: No Known Drug Allergies (Unverified , 06/24/11) Home Medications Amoxicillin/Potassium Clav 1 Each Tablet, 1 EACH PO BID Prescribed by: ONEYDA CHRISTIANSON on 04/13/17 1856 Amoxicillin/Potassium Clav 1 Each Tablet, 1 EACH PO BID Prescribed by: ONEYDA CHRISTIANSON on 05/07/17 1513 Docusate Sodium 100 Mg Capsule, 1 CAP PO DAILY PRN for CONSTIPATION Prescribed by: DEEDEE BLACK on 12/21/13 0728 Ferrous Sulfate 325 Mg Tablet, 325 MG PO DAILY, (Reported) Multivitamins 1 Tab Tablet, 1 TAB PO DAILY, (Reported) Naproxen Sodium 550 Mg Tablet, Unknown Dose PO BID, (Reported) [Ibuprofen] 800 MG TAB, 400 MG PO Q6HR Prescribed by: DEEDEE BLACK on 12/21/13 0728 Patient Home Medication List Home Medication List Reviewed: Yes Review of Systems Review of Systems Constitutional: no symptoms reported Nose: see HPI Respiratory: no symptoms reported Cardiovascular: no symptoms reported Neurological: See HPI Hematologic/Lymphatic: See HPI; Denies Easy Bruising Past Tfrusmg-Wddbrq-Wgcyel Hx Patient Social History Alcohol Use: Denies Use Recreational Drug Use: No Smoking Status: Never a Smoker 2nd Hand Smoke Exposure: No Recent Foreign Travel: No Contact w/Someone Who Travel: No Recent Infectious Disease Expo: No Recent Hopitalizations: No Immunizations Up To Date Tetanus Booster (TDap): More than 5yrs Date of Pneumonia Vaccine: Feb 16, 2012 Date of Influenza Vaccine: Jan 26, 2017 Seasonal Allergies Seasonal Allergies: No Past Medical History Surgeries: Yes (RIGHT KNEE REPLACEMENT X 2--REVISION SECONDARY TO INFECTION' LEFT CARPAL TUNNEL; RIGHT ROTATOR CUFF REPAIR; HYST/BSO WITH ANTERIOR/POSTERIOR ENTEROCOELE REPAIR AND SACRAL SPINOUS SUSPENSION AND PUBO-VAGINAL SLIGHT WITH CYSTOSCOPY 2013) Bladder Surgery, Hysterectomy, Joint Replacement, Oophorectomy, Orthopedic Respiratory: No Cardiac: Yes High Cholesterol Neurological: Yes Dementia Reproductive Disorders: No Female Reproductive Disorders: Denies [employer] CONSULTANT History: Menopausal Sexually Transmitted Disease: No HIV/AIDS: No Genitourinary: Yes (INCONTINENCE--S/P SURGERY) Kidney Stones Gastrointestinal: Yes Chronic Constipation Musculoskeletal: Yes Arthritis Endocrine: Yes Hypothyroidsim HEENT: Yes (NOSEBLEEDS) Cataract Hearing Impairment: Hard of Hearing Cancer: No Psychosocial: Yes Sleep Difficulties, Depression Integumentary: No Blood Disorders: No Adverse Reaction/Blood Tranf: No Family Medical History Cancer 03 MOTHER Family history: Alzheimer's disease 03 FATHER Family history: Arthritis 03 MOTHER (MOM HAD HUMP ON BACK) No Family History of: Congestive heart failure Family history: Cardiovascular disease Family history: Diabetes mellitus Family history: Gastrointestinal disease Family history: Glaucoma Family history: Thyroid disorder Physical Exam Vital Signs Vital Signs - First Documented 07/17/18 19:28 Temp 98.5 Pulse 95 Resp 18 B/P (MAP) 132/80 (97) Pulse Ox 95 O2 Delivery Room Air Height, Weight, BMI Height: 5'2.00" Weight: 152lbs. 2.0oz. 68.359149kv; 31.09 BMI Method:Stated General Appearance: WD/WN, no apparent distress Eyes: bilateral eye PERRL, bilateral eye EOMI Nose: other (SMALL AMOUNT OF BRIGHT RED BLOOD IN POSTERIOR PHARYNX. REGULAR TAMPON IN PT'S LEFT NARE, IS NOT SATURATED AND HAS A SMALL AMOUNT OF DRIED BLOOD AROUND NARE, AND IS STUCK TO NASAL TISSUE. ) Neurologic/Psychiatric: no motor/sensory deficits, alert, normal mood/affect Skin: normal color, warm/dry Progress/Results/Core Measures Results/Orders Blood Pressure Mean: 97 Progress Progress Note : Progress Note TAMPON LEFT IN PLACE. DAUGHTER DOES NOT RAPID RHINO PLACED--SHE STATES "THOSE NEVER WORK" Departure Communication (Admissions) NO ENT AVAILABLE HERE ALL WEEKEND 2009--CALLED [facility], DAUGHTER'S PREFERENCE 2014--SPOKE WITH DR. CERVANTES, ENT SPECIAL EVENTS DIRECTOR. ADVISES TO SEND PT TO ER 2019--SPOKE WITH DR. MULLINS, ER PHYSICIAN, ACCEPTS PT FOR TRANSFER Impression Primary Impression: RECURRENT NOSEBLEED ON LEFT Disposition: 02 XFER SHT-TRM HOSP Condition: Stable Transfer Transfer Facility: [facility] Method of Transfer: Private Vehicle Departure-Patient Inst. Referrals: LYNN MOELLER MD (PCP) Primary Care Physician ONEYDA CHRISTIANSON DO Jul 19, 2018 06:10
== END 2018-07-17 20:40 | disposition short-term general hospital (02) ==
LOC: EDUNIT# 19:17 → ER 19:19
DX: R04.0 Epistaxis (principal); E78.00 Pure hypercholesterolemia, unspecified; F03.90 Unspecified dementia, unspecified severity, without behavioral disturbance, psychotic disturbance, mood disturbance, and anxiety; E03.9 Hypothyroidism, unspecified; F32.9 Major depressive disorder, single episode, unspecified; Z87.442 Personal history of urinary calculi; Z87.19 Personal history of other diseases of the digestive system; Z96.651 Presence of right artificial knee joint; Z90.710 Acquired absence of both cervix and uterus; Z98.890 Other specified postprocedural states

== ENCOUNTER 2019-05-11 10:05 | Outpatient (RCR) | payer MEDICARE ==
[2019-05-04 11:20] VITALS: BP 102/76
[2019-05-04] MEDS: FERRIC CARBOXYMALTOSE INJ 750 MG in NS (IVPB) 250 ML IV SCH (11:25)
[~2019-05-11 10:05] MED LIST changes: -MEMA5TAB16; +MEMA5TAB43; +OXYB5TAB13; -OXYB5TAB9; -TRAZ-189; +TRM50T PO; +TRZ50T
[2019-05-11] MEDS: FERRIC CARBOXYMALTOSE INJ 750 MG in NS (IVPB) 250 ML IV SCH (10:32)
[2019-05-11 11:10] VITALS: BP 99/66
== END 2019-05-11 11:10 | disposition home or self-care (01) ==
LOC: SDC 10:05
PROVIDERS: ATTEND Nurse Practitioner Family
DX: D50.8 Other iron deficiency anemias (principal)
CPT/HCPCS: 96365